=== PATIENT | male | born 1975 | race Caucasian/White ===

== ENCOUNTER 2019-06-26 09:51 | Inpatient (IN) | payer SELFPAY ==
[~2019-06-26] VITALS: Ht 182.9 cm; Wt 76.8 kg
[2019-06-26] MEDS ORDERED: IV NORMAL SALINE 1000ML BAG 1,000 ML IV SCH (10:09)
[2019-06-26] MEDS ORDERED: fentaNYL PF VIAL 100 MCG/2 ML VIAL IV ONE ×2 (10:15→11:45)
[2019-06-26] MEDS ORDERED: ONDANSETRON PF 4 MG/2 ML VIAL. IV ONE (10:15)
[2019-06-26 10:34] LABS: BASO % 1 % (0-3); EOS % 1 % (0-3); HEMATOCRIT 40.7 % (39.0-53.0); HEMOGLOBIN 14.3 g/dL (13.0-17.5); LYMPH # 0.9 x10^3/uL (1.0-4.8); LYMPH % 15 % (24-48); MEAN CORPUSCULAR HEMOGLOBIN 33 pg (25-35); MEAN CORPUSCULAR HGB CONC 35 g/dL (31-37); MEAN CORPUSCULAR VOLUME 92 fL (79-100); MONO # 0.3 x10^3/uL (0.0-1.1); MONO % 5 % (0-9); NEUT # 4.9 x10^3/uL (1.8-7.7); NEUT % 79 % (31-73); PLATELET COUNT 292 x10^3/uL (140-400); RED BLOOD COUNT 4.41 x10^6/uL (4.30-5.70); RED CELL DISTRIBUTION WIDTH 12.4 % (11.5-14.5); WHITE BLOOD COUNT 6.2 x10^3/uL (4.0-11.0)
[2019-06-26 10:50] LABS: CALCIUM 10.3 mg/dL (8.5-10.1); CREATININE 1.1 mg/dL (0.7-1.3); GFR 72.7; POTASSIUM 4.1 mmol/L (3.5-5.1)
[2019-06-26 10:55] LABS: ALBUMIN/GLOBULIN RATIO 1.2 (1.0-1.7); TOTAL BILIRUBIN 0.3 mg/dL (0.2-1.0); TOTAL PROTEIN 7.4 g/dL (6.4-8.2)
--- NOTE | 2019-06-26 11:17 | RAD ---
EXAM: Abdomen and pelvis CT without intravenous contrast. HISTORY: Right lower quadrant pain. TECHNIQUE: Computed tomographic images of the abdomen and pelvis were obtained without contrast. Multiplanar reformatting was performed. *One or more of the following individualized dose reduction techniques were utilized for this examination: 1. Automated exposure control. 2. Adjustment of the mA and/or kV according to patient size. 3. Use of iterative reconstruction technique. COMPARISON: None. FINDINGS: Evaluation of the lower thorax is unremarkable. No hepatic lesion is seen on this noncontrast exam. The gallbladder is surgically absent. There is slight common bile duct dilatation, likely due to reservoir effect status post cystectomy. The pancreas is unremarkable. There is a splenule adjacent to an otherwise unremarkable spleen. The adrenal glands are unremarkable. There is no evidence of nephrolithiasis. There is no evidence of hydronephrosis. There is no appendicitis. There is a suspected tiny lymph node with benign fatty hilum adjacent to the appendix, measuring 8 mm. No abnormally thickened or dilated loop bowel is seen. The bladder is unremarkable. There is no lymphadenopathy. IMPRESSION: No acute abdominal or pelvic finding. Electronically signed by: Christine Salcedo MD (06/26/2019 11:14 AM) [place] [id number]
[2019-06-26 11:20] LABS: BILIRUBIN,URINE NEGATIVE (NEG); CLARITY,URINE CLEAR; COLOR,URINE YELLOW; NITRITE,URINE NEGATIVE (NEG); PH,URINE 7.5; PROTEIN,URINE NEGATIVE (NEG-TRACE); UROBILINOGEN,URINE 0.2 mg/dL (0.2 mg/dL)
[2019-06-26] MEDS ORDERED: KETOROLAC 30 MG/ML VIAL. IV ONE (11:30)
[2019-06-26 11:36] LABS: BACTERIA,URINE 0 /HPF (0-FEW); RBC,URINE OCC /HPF (0-2); SQUAMOUS EPITHELIAL CELL,UR FEW /LPF
[2019-06-26] MEDS ORDERED: METOCLOPRAMIDE HCL 10 MG/2 ML VIAL. IV ONE (12:15)
--- NOTE | 2019-06-26 12:37 | PHYS DOC ---
Past Medical History Past Medical History: Depression Past Surgical History: Cholecystectomy Alcohol Use: Occasionally Drug Use: None Adult General Chief Complaint Chief Complaint: ABDOMINAL PAIN HPI HPI Patient is a 43 year old male who presents with obtaining of right lower quadrant pain as a constant pain since 3 AM and rated his pain 10 over 10. Patient also complaining of nausea and 3 episodes of vomiting. Patient denies urinary symptoms, fever and chills, diarrhea and constipation. Patient states he has had intermittent episodes of nausea and vomiting and abdominal pain this time his pain was worse than his usual. Review of Systems Review of Systems Constitutional: Denies fever or chills [] Eyes: Denies change in visual acuity, redness, or eye pain [] HENT: Denies nasal congestion or sore throat [] Respiratory: Denies cough or shortness of breath [] Cardiovascular: No additional information not addressed in HPI [] GI: Reports abdominal pain, nausea, vomiting, denies bloody stools or diarrhea [] : Denies dysuria or hematuria [] Musculoskeletal: Denies back pain or joint pain [] Integument: Denies rash or skin lesions [] Neurologic: Denies headache, focal weakness or sensory changes [] Endocrine: Denies polyuria or polydipsia [] All other systems were reviewed and found to be within normal limits, except as documented in this note. Current Medications Current Medications Current Medications Medications (Trade) Dose Ordered Sig/Manju Start Time Stop Time Status Last Admin Dose Admin Fentanyl Citrate (Fentanyl 2ml Vial) 50 mcg 1X ONCE 06/26/19 11:45 06/26/19 11:50 DC 06/26/19 12:29 50 MCG Ketorolac Tromethamine (Toradol 30mg Vial) 30 mg 1X ONCE 06/26/19 11:30 06/26/19 11:31 DC Ondansetron HCl (Zofran) 4 mg 1X ONCE 06/26/19 10:15 06/26/19 10:37 DC 06/26/19 10:36 4 MG Sodium Chloride 1,000 ml @ 1,000 mls/hr Q1H 06/26/19 10:09 06/26/19 11:08 DC 06/26/19 10:36 1,000 MLS/HR Allergies Allergies Allergies Coded Allergies Type Severity Reaction Last Updated Verified Tetanus Vaccines and Toxoid Allergy Intermediate 06/26/19 Yes prochlorperazine Allergy Intermediate 06/26/19 Yes Physical Exam Physical Exam Constitutional: Well developed, well nourished, mild distress, non-toxic appearance. [] HENT: Normocephalic, atraumatic. Eyes: PERRLA, EOMI, conjunctiva normal, no discharge. [] Neck: Normal range of motion, no tenderness, supple, no stridor. [] Cardiovascular:Heart rate regular rhythm, no murmur [] Lungs & Thorax: Bilateral breath sounds clear to auscultation [] Abdomen: Bowel sounds normal, soft, lower quadrant guarding, no tenderness, no masses, no pulsatile masses. [] Skin: Warm, dry, no erythema, no rash. [] Back: No tenderness, no CVA tenderness. [] Extremities: No tenderness, no cyanosis, no clubbing, ROM intact, no edema. [] Neurologic: Alert and oriented X 3, no focal deficits noted. [] Psychologic: Affect normal, judgement normal, mood normal. [] Current Patient Data Vital Signs Vital Signs Date Time Temp Pulse Resp B/P (MAP) Pulse Ox O2 Delivery O2 Flow Rate FiO2 06/26/19 10:42 75 16 149/82 (104) 98 Room Air 06/26/19 10:15 97.6 97.6 Lab Values Laboratory Tests Test 06/26/19 10:27 06/26/19 11:05 White Blood Count 6.2 x10^3/uL (4.0-11.0) Red Blood Count 4.41 x10^6/uL (4.30-5.70) Hemoglobin 14.3 g/dL (13.0-17.5) Hematocrit 40.7 % (39.0-53.0) Mean Corpuscular Volume 92 fL (79-100) Mean Corpuscular Hemoglobin 33 pg (25-35) Mean Corpuscular Hemoglobin Concent 35 g/dL (31-37) Red Cell Distribution Width 12.4 % (11.5-14.5) Platelet Count 292 x10^3/uL (140-400) Neutrophils (%) (Auto) 79 % (31-73) H Lymphocytes (%) (Auto) 15 % (24-48) L Monocytes (%) (Auto) 5 % (0-9) Eosinophils (%) (Auto) 1 % (0-3) Basophils (%) (Auto) 1 % (0-3) Neutrophils # (Auto) 4.9 x10^3/uL (1.8-7.7) Lymphocytes # (Auto) 0.9 x10^3/uL (1.0-4.8) L Monocytes # (Auto) 0.3 x10^3/uL (0.0-1.1) Eosinophils # (Auto) 0.0 x10^3/uL (0.0-0.7) Basophils # (Auto) 0.0 x10^3/uL (0.0-0.2) Sodium Level 139 mmol/L (136-145) Potassium Level 4.1 mmol/L (3.5-5.1) Chloride Level 104 mmol/L (98-107) Carbon Dioxide Level 25 mmol/L (21-32) Anion Gap 10 (6-14) Blood Urea Nitrogen 12 mg/dL (8-26) Creatinine 1.1 mg/dL (0.7-1.3) Estimated GFR (Cockcroft-Gault) 72.7 BUN/Creatinine Ratio 11 (6-20) Glucose Level 110 mg/dL (70-99) H Calcium Level 10.3 mg/dL (8.5-10.1) H Total Bilirubin 0.3 mg/dL (0.2-1.0) Aspartate Amino Transferase (AST) 22 U/L (15-37) Alanine Aminotransferase (ALT) 45 U/L (16-63) Alkaline Phosphatase 78 U/L (46-116) Total Protein 7.4 g/dL (6.4-8.2) Albumin 4.0 g/dL (3.4-5.0) Albumin/Globulin Ratio 1.2 (1.0-1.7) Lipase 107 U/L (73-393) Urine Collection Type Void Urine Color Yellow Urine Clarity Clear Urine pH 7.5 Urine Specific [place] 1.015 Urine Protein Negative mg/dL (NEG-TRACE) Urine Glucose (UA) Negative mg/dL (NEG) Urine Ketones (Stick) Negative mg/dL (NEG) Urine Blood Negative (NEG) Urine Nitrite Negative (NEG) Urine Bilirubin Negative (NEG) Urine Urobilinogen Dipstick 0.2 mg/dL (0.2 mg/dL) Urine Leukocyte Esterase Negative (NEG) Urine RBC Occ /HPF (0-2) Urine WBC 1-4 /HPF (0-4) Urine Squamous Epithelial Cells Few /LPF Urine Bacteria 0 /HPF (0-FEW) Laboratory Tests 06/26/19 10:27 Laboratory Tests 06/26/19 10:27 EKG EKG [] Radiology/Procedures Radiology/Procedures [][facility] [address] [place] [address] IMAGING REPORT Signed PATIENT: SARA ALVAREZ ACCOUNT: [id number] : 1975 LOCATION: ER AGE: 43 SEX: M EXAM STATUS: REG ER ORD. PHYSICIAN: CHAVA RUIZ MD REASON: right lower quadrant pain 1 DAY PROCEDURE: CT ABDOMEN PELVIS WO CONTRAST EXAM: Abdomen and pelvis CT without intravenous contrast. HISTORY: Right lower quadrant pain. TECHNIQUE: Computed tomographic images of the abdomen and pelvis were obtained without contrast. Multiplanar reformatting was performed. *One or more of the following individualized dose reduction techniques were utilized for this examination: 1. Automated exposure control. 2. Adjustment of the mA and/or kV according to patient size. 3. Use of iterative reconstruction technique. COMPARISON: None. FINDINGS: Evaluation of the lower thorax is unremarkable. No hepatic lesion is seen on this noncontrast exam. The gallbladder is surgically absent. There is slight common bile duct dilatation, likely due to reservoir effect status post cystectomy. The pancreas is unremarkable. There is a splenule adjacent to an otherwise unremarkable spleen. The adrenal glands are unremarkable. There is no evidence of nephrolithiasis. There is no evidence of hydronephrosis. There is no appendicitis. There is a suspected tiny lymph node with benign fatty hilum adjacent to the appendix, measuring 8 mm. No abnormally thickened or dilated loop bowel is seen. The bladder is unremarkable. There is no lymphadenopathy. IMPRESSION: No acute abdominal or pelvic finding. Electronically signed by: Christine Khan MD (06/26/2019 11:14 AM) [facility] DICTATED and SIGNED BY: CHRISTINE KHAN MD DATE: 06/26/19 1116 Course & Med Decision Making Course & Med Decision Making Pertinent Labs and Imaging studies reviewed. (See chart for details) Evaluation of patient in ER showed 43-year-old male patient with complaining of abdominal pain and nausea and vomiting. Patient is IV fluid and pain medication and nausea medication with partial improvement of his condition. Labs and CT of abdomen and pelvis was unremarkable. Patient had a history of the same problem previously. Patient requiring admission for further evaluation and treatment. Discussed with Dr. Hdz who is in agreement with admission. Discussed findings and plan with patient and family, who acknowledge understanding and agreement. Dragon Disclaimer Dragon Disclaimer This electronic medical record was generated, in whole or in part, using a voice recognition dictation system. Departure Departure Impression: Primary Impression: Abdominal pain Additional Impressions: Nausea and vomiting Hypercalcemia Disposition: ADMITTED INPATIENT (@1204) Admitting Physician: BARBARA (Dr. Hdz accepted admission at 1201) Condition: IMPROVED Referrals: UNKNOWN PCP NAME (PCP) Problem Qualifiers Primary Impression: Abdominal pain Abdominal location: right lower quadrant Qualified Codes: R10.31 - Right lower quadrant pain Additional Impressions: Nausea and vomiting Vomiting type: cyclical vomiting Vomiting Intractability: intractable Qualified Codes: G43.A1 - Cyclical vomiting, intractable CHAVA RUIZ MD Jun 26, 2019 12:37
[2019-06-26] MEDS ORDERED: ONDANSETRON PF 4 MG/2 ML VIAL. IV PRN ×2 (12:45→14:15)
[2019-06-26 12:50] VITALS: BP 121/87
[2019-06-26] MEDS: IV NORMAL SALINE 1000ML BAG 1,000 ML IV SCH ×2 (12:52→19:17)
[2019-06-26] MEDS ORDERED: LAMO150T3 PO (14:02)
[2019-06-26] MEDS ORDERED: CLON2TAB PO (14:02)
[2019-06-26] MEDS ORDERED: QUET300T5 PO (14:02)
--- NOTE | 2019-06-26 14:57 | PDOC2 ---
GI CONSULT Reason For Consult: Abd pain, nausea HPI: HPI: 43 y/o male admitted through ER. Awoke suddenly at 3:00 a.m. w/ stabbing right- sided abd pain associated w/ vomiting (bilious). Typically has no issues w/ abd pain or vomiting but did have similar symptoms around age 34. At that time, had EGD and colonoscopy in [place], [place] which were both reportedly normal and he might have been diagnosed w/ IBS. Ultimately had cholecystectomy - does not recall stones. No issues since. Has occasional dyspepsia (burning in upper chest), takes Tums ~twice monthly. No dysphagia. No hematemesis. No diarrhea, constipation, hematochezia, or melena. No change in appetite or weight loss. No liver, pancreas, or PUD history. Takes ibuprofen a couple times weekly for knee pain. No new medications, sick contacts, recent travel, or consumption of questionable food. 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 WBC, Hgb, LFTs, and lipase are normal. Ca++ was 10.3 and PTH is pending. CT was w/o acute issue - noted slight CBD dilatation likely due to reservoir effect s/p cholecystectomy and suspected tiny lymph node with benign fatty hilum adjacent to appendix. PMH: PMH: IBS, bipolar cholecystectomy, left ACL repair x 2, right ACL repair FH: Family History: Cancer (mother - lung and breast), Other (mother - GI problems/food allergies) Social History: Smoke: No ALCOHOL: rare Drugs: None ROS: GEN: Denies fevers, chills, sweats HEENT: Denies blurred vision, sore throat CV: Denies chest pain RESP: Denies shortness of air, cough GI: Per HPI : Denies hematuria, dysuria ENDO: Denies weight changes NEURO: Denies confusion, dizziness MSK: occasional joint pain SKIN: Denies jaundice, pruritus Vitals: Vitals: Vital Signs Date Time Temp Pulse Resp B/P (MAP) Pulse Ox O2 Delivery O2 Flow Rate FiO2 06/26/19 12:50 98.3 76 14 121/87 (98) 98 Room Air 98.3 Labs: Labs: Laboratory Tests Test 06/26/19 10:27 06/26/19 11:05 White Blood Count 6.2 x10^3/uL (4.0-11.0) Red Blood Count 4.41 x10^6/uL (4.30-5.70) Hemoglobin 14.3 g/dL (13.0-17.5) Hematocrit 40.7 % (39.0-53.0) Mean Corpuscular Volume 92 fL (79-100) Mean Corpuscular Hemoglobin 33 pg (25-35) Mean Corpuscular Hemoglobin Concent 35 g/dL (31-37) Red Cell Distribution Width 12.4 % (11.5-14.5) Platelet Count 292 x10^3/uL (140-400) Neutrophils (%) (Auto) 79 % (31-73) Lymphocytes (%) (Auto) 15 % (24-48) Monocytes (%) (Auto) 5 % (0-9) Eosinophils (%) (Auto) 1 % (0-3) Basophils (%) (Auto) 1 % (0-3) Neutrophils # (Auto) 4.9 x10^3/uL (1.8-7.7) Lymphocytes # (Auto) 0.9 x10^3/uL (1.0-4.8) Monocytes # (Auto) 0.3 x10^3/uL (0.0-1.1) Eosinophils # (Auto) 0.0 x10^3/uL (0.0-0.7) Basophils # (Auto) 0.0 x10^3/uL (0.0-0.2) Sodium Level 139 mmol/L (136-145) Potassium Level 4.1 mmol/L (3.5-5.1) Chloride Level 104 mmol/L (98-107) Carbon Dioxide Level 25 mmol/L (21-32) Anion Gap 10 (6-14) Blood Urea Nitrogen 12 mg/dL (8-26) Creatinine 1.1 mg/dL (0.7-1.3) Estimated GFR (Cockcroft-Gault) 72.7 BUN/Creatinine Ratio 11 (6-20) Glucose Level 110 mg/dL (70-99) Calcium Level 10.3 mg/dL (8.5-10.1) Total Bilirubin 0.3 mg/dL (0.2-1.0) Aspartate Amino Transf (AST/SGOT) 22 U/L (15-37) Alanine Aminotransferase (ALT/SGPT) 45 U/L (16-63) Alkaline Phosphatase 78 U/L (46-116) Total Protein 7.4 g/dL (6.4-8.2) Albumin 4.0 g/dL (3.4-5.0) Albumin/Globulin Ratio 1.2 (1.0-1.7) Lipase 107 U/L (73-393) Urine Collection Type Void Urine Color Yellow Urine Clarity Clear Urine pH 7.5 Urine Specific [place] 1.015 Urine Protein Negative mg/dL (NEG-TRACE) Urine Glucose (UA) Negative mg/dL (NEG) Urine Ketones (Stick) Negative mg/dL (NEG) Urine Blood Negative (NEG) Urine Nitrite Negative (NEG) Urine Bilirubin Negative (NEG) Urine Urobilinogen Dipstick 0.2 mg/dL (0.2 mg/dL) Urine Leukocyte Esterase Negative (NEG) Urine RBC Occ /HPF (0-2) Urine WBC 1-4 /HPF (0-4) Urine Squamous Epithelial Cells Few /LPF Urine Bacteria 0 /HPF (0-FEW) Allergies: Coded Allergies: Tetanus Vaccines and Toxoid (Verified Allergy, Intermediate, 06/26/19) prochlorperazine (Verified Allergy, Intermediate, 06/26/19) involuntary muscle movement. Medications: Current Medications Medications (Trade) Dose Ordered Sig/Manju Route PRN Reason Start Time Stop Time Status Last Admin Dose Admin Sodium Chloride 1,000 ml @ 1,000 mls/hr Q1H IV 06/26/19 10:09 06/26/19 11:08 DC 06/26/19 10:36 Ondansetron HCl (Zofran) 4 mg 1X ONCE IV 06/26/19 10:15 06/26/19 10:37 DC 06/26/19 10:36 Fentanyl Citrate (Fentanyl 2ml Vial) 50 mcg 1X ONCE IV 06/26/19 10:15 06/26/19 10:36 DC 06/26/19 10:37 Fentanyl Citrate (Fentanyl 2ml Vial) 50 mcg 1X ONCE IV 06/26/19 11:45 06/26/19 11:50 DC 06/26/19 12:29 Metoclopramide HCl (Reglan Vial) 10 mg 1X ONCE IV 06/26/19 12:15 06/26/19 12:16 DC 06/26/19 12:29 Sodium Chloride 1,000 ml @ 150 mls/hr Q6H40M IV 06/26/19 12:37 06/27/19 12:36 06/26/19 12:52 Imaging: Imaging: CT A/P w/o contrast FINDINGS: Evaluation of the lower thorax is unremarkable. No hepatic lesion is seen on this noncontrast exam. The gallbladder is surgically absent. There is slight common bile duct dilatation, likely due to reservoir effect status post cystectomy. The pancreas is unremarkable. There is a splenule adjacent to an otherwise unremarkable spleen. The adrenal glands are unremarkable. There is no evidence of nephrolithiasis. There is no evidence of hydronephrosis. There is no appendicitis. There is a suspected tiny lymph node with benign fatty hilum adjacent to the appendix, measuring 8 mm. No abnormally thickened or dilated loop bowel is seen. The bladder is unremarkable. There is no lymphadenopathy. IMPRESSION: No acute abdominal or pelvic finding. PE: GEN: NAD HEENT: Atraumatic, PERRL LUNGS: CTAB HEART: RRR ABD: NABS, S/ND, tenderness to right side below ribs to RLQ above hip - less so toward epigastric area EXTREMITY: No edema SKIN: No rashes, no jaundice NEURO/PSYCH: A & O �3 A/P: A/P: Right-sided abd pain, vomiting Occasional heartburn, ?h/o IBS CRC screen - reports normal colonoscopy ~9 years ago S/p cholecystectomy Hypercalcemia NSAID use Bipolar - per primary -- Acute onset of symptoms overnight w/o precipitating events. I offered clear liquids - he'd like to try ice chips for now. IV acid-substance abuse rn, anti-emetics. Pain control, IVF, and psych meds per primary. Additional GI recs per Dr. Pereyra. OLGA URIOSTEGUI Jun 26, 2019 14:57
[2019-06-26 15:00] VITALS: BP 125/88
--- NOTE | 2019-06-26 15:10 | HP ---
ADMIT DATE: 06/26/2019 CHIEF COMPLAINT: Abdominal pain and nausea. HISTORY OF PRESENT ILLNESS: The patient is a pleasant, healthy middle-aged male who presents with nausea, vomiting, and abdominal pain. It is in the right lower quadrant, rated 7/10. He has associated weakness, has been occurring for about 12 hours. I discussed the case with ER physician. We are going to admit the patient and consult GI. PAST MEDICAL HISTORY: Cholecystectomy and knee surgery. ALLERGIES: TETANUS AND COMPAZINE. FAMILY HISTORY: Hypertension. SOCIAL HISTORY: He does not drink, smoke or take drugs. 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 MEDICATIONS: Reviewed, please refer to the MRAD. REVIEW OF SYSTEMS: GENERAL: No history of weight change, weakness or fevers. SKIN: No bruising, hair changes or rashes. EYES: No blurred, double or loss of vision. NOSE AND THROAT: No history of nosebleeds, hoarseness or sore throat. HEART: No history of palpitations, chest pain or shortness of breath on exertion. LUNGS: Denies cough, hemoptysis, wheezing or shortness of breath. GASTROINTESTINAL: He complains of abdominal pain in the right lower quadrant. GENITOURINARY: No history of frequency, urgency, hesitancy or nocturia. NEUROLOGIC: Denies history of numbness, tingling, tremor or weakness. PSYCHIATRIC: No history of panic, anxiety or depression. ENDOCRINE: No history of heat or cold intolerance, polyuria or polydipsia. EXTREMITIES: Denies muscle weakness, joint pain, pain on walking or stiffness. PHYSICAL EXAMINATION: VITALS: Within normal limits and are stable. GENERAL: No apparent distress. Alert and oriented. HEENT: Head is normocephalic, atraumatic, pupils were equally round and reactive to light and accommodation. NECK: Supple, no JVD, no thyromegaly was noted. LUNGS: Clear to auscultation in all lung sweet without rhonchi or wheezing. HEART: RRR, S1, S2 present. Peripheral pulses intact, no obvious murmurs were noted. ABDOMEN: Soft, nontender. Positive bowel sounds no organomegaly, normal bowel sounds. EXTREMITIES: Without any cyanosis, clubbing, or edema. Pedal pulses intact, Homans sign is negative. NEUROLOGIC: Normal speech, normal tone. A & O x3, moves all extremities, no obvious focal deficits. PSYCHIATRIC: Normal affect, normal mood. Stable. SKIN: No ulcerations or rashes, good skin turgor, no jaundice. VASCULAR: Good capillary refill, neurovascular bundle appears to be intact. LABORATORY DATA: White count 6, hemoglobin 14, platelets 292. Urinalysis normal. Electrolytes: They are normal except for a glucose of 110 and a calcium of 10.3. CT of the abdomen negative. ASSESSMENT AND PLAN: Nausea, vomiting, abdominal pain, and incidental finding of a mild hypercalcemia. The patient is being admitted. We will give IV fluids, check a PTH level, p.r.n. Zofran, deep vein thrombosis prophylaxis, home medications. IVY ALVAREZ DO DR: JIL/max JOB#: [id number] / [id number]
[2019-06-26] MEDS: PANTOPRAZOLE IV PUSH 40 MG VIAL. IVP SCH (15:52)
[2019-06-26] MEDS: HYDROcodone/APAP 5/325MG 1 TAB TABLET PO PRN ×2 (16:01→20:53)
[2019-06-26] MEDS: clonazePAM 1 MG TABLET PO SCH ×2 (17:17→20:48)
[2019-06-26 17:31] LABS: BARBITURATES NEG (NEG); BENZODIAZEPINES NEG (NEG); CANNABINOIDS NEG (NEG); COCAINE NEG (NEG); METHADONE NEG (NEG); OPIATES NEG (NEG); PHENCYCLIDINE NEG (NEG)
[2019-06-26 17:34] LABS: AMPHETAMINE/METHAMPHETAMINE NEG (NEG)
[2019-06-26 19:00] VITALS: BP 116/81
[2019-06-26] MEDS: AMINO AC 3%/ELECTROLYTE/GLYCER 1,000 ML IV SCH (19:56)
[2019-06-26] MEDS: QUEtiapine 100 MG TABLET. PO SCH (20:47)
--- NOTE | 2019-06-26 20:56 | NUR ---
Non-Administered NS at 191 due to pt having procalamine running at 75 mL/hr.
[2019-06-26 23:00] VITALS: BP 101/67
[2019-06-27] MEDS: IV NORMAL SALINE 1000ML BAG 1,000 ML IV SCH ×2 (01:55→08:37)
--- NOTE | 2019-06-27 01:55 | NUR ---
Non-Admin NS at 0157 due to pt having Procalamine running.
[2019-06-27 02:12] LABS: CALCIUM PTH 10.1 mg/dL (8.7-10.2); CREATININE PTH 0.88 mg/dL (0.76-1.27); PHOSPHORUS PTH 2.2 mg/dL (2.5-4.5); PTH INTACT 23 pg/mL (15-65)
[2019-06-27 03:00] VITALS: BP 100/68
[2019-06-27] MEDS: HYDROcodone/APAP 5/325MG 1 TAB TABLET PO PRN ×5 (03:11→21:25)
[2019-06-27] MEDS: AMINO AC 3%/ELECTROLYTE/GLYCER 1,000 ML IV SCH ×2 (04:20→17:19)
[2019-06-27 04:27] LABS: HEMATOCRIT 38.2 % (39.0-53.0); HEMOGLOBIN 13.2 g/dL (13.0-17.5); RED BLOOD COUNT 4.1 x10^6/uL (4.30-5.70); RED CELL DISTRIBUTION WIDTH 12.6 % (11.5-14.5)
[2019-06-27 04:59] LABS: ALBUMIN/GLOBULIN RATIO 0.9 (1.0-1.7); CALCIUM 9.4 mg/dL (8.5-10.1); CREATININE 0.9 mg/dL (0.7-1.3); GFR 91.7; POTASSIUM 3.6 mmol/L (3.5-5.1); TOTAL BILIRUBIN 0.5 mg/dL (0.2-1.0); TOTAL PROTEIN 6.4 g/dL (6.4-8.2)
[2019-06-27 07:05] VITALS: BP 110/77
[2019-06-27] MEDS ORDERED: BARIUM SULFATE 60% 355 ML SUSP PO ONE (07:15)
[2019-06-27] MEDS: clonazePAM 1 MG TABLET PO SCH ×4 (10:06→21:25)
[2019-06-27] MEDS: PANTOPRAZOLE IV PUSH 40 MG VIAL. IVP SCH (10:06)
--- NOTE | 2019-06-27 10:06 | RAD ---
Indication: Abdominal pain. Nausea and vomiting. TECHNIQUE: Small bowel follow-through exam with thin barium and 1.6 minutes of fluoroscopy time and 8 images. COMPARISON: None FINDINGS: Prompt opacification is seen of the stomach. Appropriate antegrade movement of contrast is seen in the small bowel. Contrast is seen in the colon at 1 hour. The small bowel fold pattern is within normal limits. Terminal ileum is within normal limits. IMPRESSION: No fluoroscopic abnormalities in the small bowel. Electronically signed by: Omari Vo DO (06/27/2019 10:03 AM) [facility]
[2019-06-27] MEDS: lamoTRIgine 100 MG TABLET. PO SCH (10:09)
--- NOTE | 2019-06-27 10:51 | NUR ---
SW following pt for dc planning. Chart reviewed and discussed with RN. Pt lives at home alone and is self pay. HCFS will follow to verify self pay status. SW will continue to follow pending dc needs.
--- NOTE | 2019-06-27 10:58 | PDOC ---
Subjective: Subjective: Nausea has improved, would like to try clear liquids. Right-sided pain is less sharp. Objective: Vital Signs: Vital Signs Date Time Temp Pulse Resp B/P (MAP) Pulse Ox O2 Delivery O2 Flow Rate FiO2 06/27/19 10:09 18 Room Air 06/27/19 07:05 98.1 77 110/77 (88) 97 98.1 Labs: Laboratory Tests Test 06/26/19 11:05 06/26/19 14:40 06/26/19 16:55 06/27/19 03:30 Urine Collection Type Void Urine Color Yellow Urine Clarity Clear Urine pH 7.5 Urine Specific [place] 1.015 Urine Protein Negative mg/dL Urine Glucose (UA) Negative mg/dL Urine Ketones (Stick) Negative mg/dL Urine Blood Negative Urine Nitrite Negative Urine Bilirubin Negative Urine Urobilinogen Dipstick 0.2 mg/dL Urine Leukocyte Esterase Negative Urine RBC Occ /HPF Urine WBC 1-4 /HPF Urine Squamous Epithelial Cells Few /LPF Urine Bacteria 0 /HPF Estimated GFR (Non- 104 EGFR 121 PTH (Intact) Specimen Description Comment Parathyroid Hormone (Intact) 23 pg/mL Calcium (PTH Intact) 10.1 mg/dL Creatinine (PTH Intact) 0.88 mg/dL Phosphorus (PTH Intact) 2.2 mg/dL Urine Opiates Screen Neg Urine Methadone Screen Neg Urine Barbiturates Neg Urine Phencyclidine Screen Neg Urine Amphetamine/Methamphetamine Neg Urine Benzodiazepines Screen Neg Urine Cocaine Screen Neg Urine Cannabinoids Screen Neg Urine Ethyl Alcohol Neg White Blood Count 5.0 x10^3/uL Red Blood Count 4.10 x10^6/uL Hemoglobin 13.2 g/dL Hematocrit 38.2 % Mean Corpuscular Volume 93 fL Mean Corpuscular Hemoglobin 32 pg Mean Corpuscular Hemoglobin Concent 35 g/dL Red Cell Distribution Width 12.6 % Platelet Count 251 x10^3/uL Sodium Level 140 mmol/L Potassium Level 3.6 mmol/L Chloride Level 105 mmol/L Carbon Dioxide Level 27 mmol/L Anion Gap 8 Blood Urea Nitrogen 12 mg/dL Creatinine 0.9 mg/dL Estimated GFR (Cockcroft-Gault) 91.7 BUN/Creatinine Ratio 13 Glucose Level 98 mg/dL Calcium Level 9.4 mg/dL Total Bilirubin 0.5 mg/dL Aspartate Amino Transf (AST/SGOT) 21 U/L Alanine Aminotransferase (ALT/SGPT) 36 U/L Alkaline Phosphatase 62 U/L Total Protein 6.4 g/dL Albumin 3.0 g/dL Albumin/Globulin Ratio 0.9 Imaging: SBS 06/27 IMPRESSION: No fluoroscopic abnormalities in the small bowel. PE: GEN: NAD LUNGS: CTAB HEART: RRR ABD: hyperactive bowel sounds, soft, less tender to right NEURO/PSYCH: A & O �3 A/P: Right-sided abd pain, n/v - improved -- SBS unrevealing and symptoms improved. Try clears and ADAT, change to PO PPI. Reviewed w/ Dr. Pereyra - proceed w/ Meckel's scan tomorrow. OLGA URIOSTEGUI Jun 27, 2019 10:58
[2019-06-27 11:00] VITALS: BP 101/75
--- NOTE | 2019-06-27 11:21 | PDOC ---
PROGRESS NOTES History of Present Illness History of Present Illness ASSESSMENT AND PLAN: Nausea, vomiting, INTRACTABLE abdominal pain, mild hypercalcemia. admitted. IV fluids, PTH level, p.r.n. Zofran, deep vein thrombosis prophylaxis, home medications. Meckel's scan 06/27 PPN AM LABS 27 MIN PT EXAM, CHART REVIEW, > 50% OF TIME SPENT WITH EXAM, CHART REVIEW, PT CARE COORDINATION Vitals Vitals Vital Signs Date Time Temp Pulse Resp B/P (MAP) Pulse Ox O2 Delivery O2 Flow Rate FiO2 06/27/19 10:09 18 Room Air 06/27/19 07:05 98.1 77 110/77 (88) 97 98.1 Physical Exam Physical Exam reactive to light and accommodation. NECK: Supple, no JVD, no thyromegaly was noted. LUNGS: Clear to auscultation in all lung sweet without rhonchi or wheezing. HEART: RRR, S1, S2 present. Peripheral pulses intact, no obvious murmurs were noted. ABDOMEN: Soft, nontender. Positive bowel sounds no organomegaly, normal bowel sounds. EXTREMITIES: Without any cyanosis, clubbing, or edema. Pedal pulses intact, Homans sign is negative. NEUROLOGIC: Normal speech, normal tone. A & O x3, moves all extremities, no obvious focal deficits. PSYCHIATRIC: Normal affect, normal mood. Stable. SKIN: No ulcerations or rashes, good skin turgor, no jaundice. VASCULAR: Good capillary refill, neurovascular bundle appears to be intact. General: Alert, Oriented X3, Cooperative Lungs: Clear Abdomen: Normal bowel sounds, Soft Labs LABS SEX: M EXAM STATUS: ADM IN ORD. PHYSICIAN: OLGA URIOSTEGUI REASON: abd pain, n/v, flouro time 1.6,8 flouro images sent PROCEDURE: SMALL BOWEL SERIES Indication: Abdominal pain. Nausea and vomiting. TECHNIQUE: Small bowel follow-through exam with thin barium and 1.6 minutes of fluoroscopy time and 8 images. COMPARISON: None FINDINGS: Prompt opacification is seen of the stomach. Appropriate antegrade movement of contrast is seen in the small bowel. Contrast is seen in the colon at 1 hour. The small bowel fold pattern is within normal limits. Terminal ileum is within normal limits. IMPRESSION: No fluoroscopic abnormalities in the small bowel. Electronically signed by: Omari Vo DO (06/27/2019 10:03 AM) [facility] Laboratory Tests Test 06/26/19 14:40 06/26/19 16:55 06/27/19 03:30 Estimated GFR (Non- 104 (>59) EGFR 121 (>59) PTH (Intact) Specimen Description Comment (.) Parathyroid Hormone (Intact) 23 pg/mL (15-65) Calcium (PTH Intact) 10.1 mg/dL (8.7-10.2) Creatinine (PTH Intact) 0.88 mg/dL (0.76-1.27) Phosphorus (PTH Intact) 2.2 mg/dL (2.5-4.5) Urine Opiates Screen Neg (NEG) Urine Methadone Screen Neg (NEG) Urine Barbiturates Neg (NEG) Urine Phencyclidine Screen Neg (NEG) Urine Amphetamine/Methamphetamine Neg (NEG) Urine Benzodiazepines Screen Neg (NEG) Urine Cocaine Screen Neg (NEG) Urine Cannabinoids Screen Neg (NEG) Urine Ethyl Alcohol Neg (NEG) White Blood Count 5.0 x10^3/uL (4.0-11.0) Red Blood Count 4.10 x10^6/uL (4.30-5.70) Hemoglobin 13.2 g/dL (13.0-17.5) Hematocrit 38.2 % (39.0-53.0) Mean Corpuscular Volume 93 fL (79-100) Mean Corpuscular Hemoglobin 32 pg (25-35) Mean Corpuscular Hemoglobin Concent 35 g/dL (31-37) Red Cell Distribution Width 12.6 % (11.5-14.5) Platelet Count 251 x10^3/uL (140-400) Sodium Level 140 mmol/L (136-145) Potassium Level 3.6 mmol/L (3.5-5.1) Chloride Level 105 mmol/L (98-107) Carbon Dioxide Level 27 mmol/L (21-32) Anion Gap 8 (6-14) Blood Urea Nitrogen 12 mg/dL (8-26) Creatinine 0.9 mg/dL (0.7-1.3) Estimated GFR (Cockcroft-Gault) 91.7 BUN/Creatinine Ratio 13 (6-20) Glucose Level 98 mg/dL (70-99) Calcium Level 9.4 mg/dL (8.5-10.1) Total Bilirubin 0.5 mg/dL (0.2-1.0) Aspartate Amino Transf (AST/SGOT) 21 U/L (15-37) Alanine Aminotransferase (ALT/SGPT) 36 U/L (16-63) Alkaline Phosphatase 62 U/L (46-116) Total Protein 6.4 g/dL (6.4-8.2) Albumin 3.0 g/dL (3.4-5.0) Albumin/Globulin Ratio 0.9 (1.0-1.7) Assessment and Plan Assessmemt and Plan Problems Medical Problems: (1) Abdominal pain Status: Acute (2) Hypercalcemia Status: Acute (3) Nausea and vomiting Status: Acute Comment Review of Relevant I have reviewed the following items rio (where applicable) has been applied. Labs Laboratory Tests Test 06/26/19 10:27 06/26/19 11:05 06/26/19 14:40 06/26/19 16:55 White Blood Count 6.2 x10^3/uL (4.0-11.0) Red Blood Count 4.41 x10^6/uL (4.30-5.70) Hemoglobin 14.3 g/dL (13.0-17.5) Hematocrit 40.7 % (39.0-53.0) Mean Corpuscular Volume 92 fL (79-100) Mean Corpuscular Hemoglobin 33 pg (25-35) Mean Corpuscular Hemoglobin Concent 35 g/dL (31-37) Red Cell Distribution Width 12.4 % (11.5-14.5) Platelet Count 292 x10^3/uL (140-400) Neutrophils (%) (Auto) 79 % (31-73) Lymphocytes (%) (Auto) 15 % (24-48) Monocytes (%) (Auto) 5 % (0-9) Eosinophils (%) (Auto) 1 % (0-3) Basophils (%) (Auto) 1 % (0-3) Neutrophils # (Auto) 4.9 x10^3/uL (1.8-7.7) Lymphocytes # (Auto) 0.9 x10^3/uL (1.0-4.8) Monocytes # (Auto) 0.3 x10^3/uL (0.0-1.1) Eosinophils # (Auto) 0.0 x10^3/uL (0.0-0.7) Basophils # (Auto) 0.0 x10^3/uL (0.0-0.2) Sodium Level 139 mmol/L (136-145) Potassium Level 4.1 mmol/L (3.5-5.1) Chloride Level 104 mmol/L (98-107) Carbon Dioxide Level 25 mmol/L (21-32) Anion Gap 10 (6-14) Blood Urea Nitrogen 12 mg/dL (8-26) Creatinine 1.1 mg/dL (0.7-1.3) Estimated GFR (Cockcroft-Gault) 72.7 BUN/Creatinine Ratio 11 (6-20) Glucose Level 110 mg/dL (70-99) Calcium Level 10.3 mg/dL (8.5-10.1) Total Bilirubin 0.3 mg/dL (0.2-1.0) Aspartate Amino Transf (AST/SGOT) 22 U/L (15-37) Alanine Aminotransferase (ALT/SGPT) 45 U/L (16-63) Alkaline Phosphatase 78 U/L (46-116) Total Protein 7.4 g/dL (6.4-8.2) Albumin 4.0 g/dL (3.4-5.0) Albumin/Globulin Ratio 1.2 (1.0-1.7) Lipase 107 U/L (73-393) Urine Collection Type Void Urine Color Yellow Urine Clarity Clear Urine pH 7.5 Urine Specific Lebeau 1.015 Urine Protein Negative mg/dL (NEG-TRACE) Urine Glucose (UA) Negative mg/dL (NEG) Urine Ketones (Stick) Negative mg/dL (NEG) Urine Blood Negative (NEG) Urine Nitrite Negative (NEG) Urine Bilirubin Negative (NEG) Urine Urobilinogen Dipstick 0.2 mg/dL (0.2 mg/dL) Urine Leukocyte Esterase Negative (NEG) Urine RBC Occ /HPF (0-2) Urine WBC 1-4 /HPF (0-4) Urine Squamous Epithelial Cells Few /LPF Urine Bacteria 0 /HPF (0-FEW) Estimated GFR (Non- 104 (>59) EGFR 121 (>59) PTH (Intact) Specimen Description Comment (.) Parathyroid Hormone (Intact) 23 pg/mL (15-65) Calcium (PTH Intact) 10.1 mg/dL (8.7-10.2) Creatinine (PTH Intact) 0.88 mg/dL (0.76-1.27) Phosphorus (PTH Intact) 2.2 mg/dL (2.5-4.5) Urine Opiates Screen Neg (NEG) Urine Methadone Screen Neg (NEG) Urine Barbiturates Neg (NEG) Urine Phencyclidine Screen Neg (NEG) Urine Amphetamine/Methamphetamine Neg (NEG) Urine Benzodiazepines Screen Neg (NEG) Urine Cocaine Screen Neg (NEG) Urine Cannabinoids Screen Neg (NEG) Urine Ethyl Alcohol Neg (NEG) Test 06/27/19 03:30 White Blood Count 5.0 x10^3/uL (4.0-11.0) Red Blood Count 4.10 x10^6/uL (4.30-5.70) Hemoglobin 13.2 g/dL (13.0-17.5) Hematocrit 38.2 % (39.0-53.0) Mean Corpuscular Volume 93 fL (79-100) Mean Corpuscular Hemoglobin 32 pg (25-35) Mean Corpuscular Hemoglobin Concent 35 g/dL (31-37) Red Cell Distribution Width 12.6 % (11.5-14.5) Platelet Count 251 x10^3/uL (140-400) Sodium Level 140 mmol/L (136-145) Potassium Level 3.6 mmol/L (3.5-5.1) Chloride Level 105 mmol/L (98-107) Carbon Dioxide Level 27 mmol/L (21-32) Anion Gap 8 (6-14) Blood Urea Nitrogen 12 mg/dL (8-26) Creatinine 0.9 mg/dL (0.7-1.3) Estimated GFR (Cockcroft-Gault) 91.7 BUN/Creatinine Ratio 13 (6-20) Glucose Level 98 mg/dL (70-99) Calcium Level 9.4 mg/dL (8.5-10.1) Total Bilirubin 0.5 mg/dL (0.2-1.0) Aspartate Amino Transf (AST/SGOT) 21 U/L (15-37) Alanine Aminotransferase (ALT/SGPT) 36 U/L (16-63) Alkaline Phosphatase 62 U/L (46-116) Total Protein 6.4 g/dL (6.4-8.2) Albumin 3.0 g/dL (3.4-5.0) Albumin/Globulin Ratio 0.9 (1.0-1.7) Laboratory Tests Test 06/26/19 14:40 06/26/19 16:55 06/27/19 03:30 Estimated GFR (Non- 104 (>59) EGFR 121 (>59) PTH (Intact) Specimen Description Comment (.) Parathyroid Hormone (Intact) 23 pg/mL (15-65) Calcium (PTH Intact) 10.1 mg/dL (8.7-10.2) Creatinine (PTH Intact) 0.88 mg/dL (0.76-1.27) Phosphorus (PTH Intact) 2.2 mg/dL (2.5-4.5) Urine Opiates Screen Neg (NEG) Urine Methadone Screen Neg (NEG) Urine Barbiturates Neg (NEG) Urine Phencyclidine Screen Neg (NEG) Urine Amphetamine/Methamphetamine Neg (NEG) Urine Benzodiazepines Screen Neg (NEG) Urine Cocaine Screen Neg (NEG) Urine Cannabinoids Screen Neg (NEG) Urine Ethyl Alcohol Neg (NEG) White Blood Count 5.0 x10^3/uL (4.0-11.0) Red Blood Count 4.10 x10^6/uL (4.30-5.70) Hemoglobin 13.2 g/dL (13.0-17.5) Hematocrit 38.2 % (39.0-53.0) Mean Corpuscular Volume 93 fL (79-100) Mean Corpuscular Hemoglobin 32 pg (25-35) Mean Corpuscular Hemoglobin Concent 35 g/dL (31-37) Red Cell Distribution Width 12.6 % (11.5-14.5) Platelet Count 251 x10^3/uL (140-400) Sodium Level 140 mmol/L (136-145) Potassium Level 3.6 mmol/L (3.5-5.1) Chloride Level 105 mmol/L (98-107) Carbon Dioxide Level 27 mmol/L (21-32) Anion Gap 8 (6-14) Blood Urea Nitrogen 12 mg/dL (8-26) Creatinine 0.9 mg/dL (0.7-1.3) Estimated GFR (Cockcroft-Gault) 91.7 BUN/Creatinine Ratio 13 (6-20) Glucose Level 98 mg/dL (70-99) Calcium Level 9.4 mg/dL (8.5-10.1) Total Bilirubin 0.5 mg/dL (0.2-1.0) Aspartate Amino Transf (AST/SGOT) 21 U/L (15-37) Alanine Aminotransferase (ALT/SGPT) 36 U/L (16-63) Alkaline Phosphatase 62 U/L (46-116) Total Protein 6.4 g/dL (6.4-8.2) Albumin 3.0 g/dL (3.4-5.0) Albumin/Globulin Ratio 0.9 (1.0-1.7) Medications Current Medications Sodium Chloride 1,000 ml @ 1,000 mls/hr Q1H IV Last administered on 06/26/19at 10:36; Start 06/26/19 at 10:09; Stop 06/26/19 at 11:08; Status DC Ondansetron HCl (Zofran) 4 mg 1X ONCE IV Last administered on 06/26/19at 10:36; Start 06/26/19 at 10:15; Stop 06/26/19 at 10:37; Status DC Fentanyl Citrate (Fentanyl 2ml Vial) 50 mcg 1X ONCE IV Last administered on 06/26/19at 10:37; Start 06/26/19 at 10:15; Stop 06/26/19 at 10:36; Status DC Ketorolac Tromethamine (Toradol 30mg Vial) 30 mg 1X ONCE IV ; Start 06/26/19 at 11:30; Stop 06/26/19 at 11:31; Status DC Fentanyl Citrate (Fentanyl 2ml Vial) 50 mcg 1X ONCE IV Last administered on 06/26/19at 12:29; Start 06/26/19 at 11:45; Stop 06/26/19 at 11:50; Status DC Metoclopramide HCl (Reglan Vial) 10 mg 1X ONCE IV Last administered on 06/26/19at 12:29; Start 06/26/19 at 12:15; Stop 06/26/19 at 12:16; Status DC Ondansetron HCl (Zofran) 4 mg PRN Q8HRS PRN IV NAUSEA/VOMITING; Start 06/26/19 at 12:45; Stop 06/26/19 at 14:15; Status DC Sodium Chloride 1,000 ml @ 150 mls/hr [id number] IV Last administered on 06/26/19 12:52; Start 06/26/19 at 12:37; Stop 06/27/19 at 12:36 Amino Acids/ Glycerin/ Electrolytes 1,000 ml @ 75 mls/hr [id number] IV Last administered on 06/27/19at 04:26; Start 06/26/19 at 15:00 Ondansetron HCl (Zofran) 4 mg PRN Q6HRS PRN IV NAUSEA/VOMITING; Start 06/26/19 at 14:15 Acetaminophen/ Hydrocodone Bitart (Lortab 5/325) 1 tab PRN Q4HRS PRN PO PAIN Last administered on 06/27/19 07:17; Start 06/26/19 at 14:15 Pantoprazole Sodium (PROTONIX VIAL for IV PUSH) 40 mg DAILYAC IVP Last administered on 06/27/19 10:09; Start 06/26/19 at 15:30; Stop 06/27/19 at 10:59; Status DC Clonazepam (KlonoPIN) 2 mg QID PO Last administered on 06/27/19 10:09; Start 06/26/19 at 17:00 Lamotrigine (LaMICtal) 150 mg DAILY PO Last administered on 06/27/19 10:09; Start 06/27/19 at 09:00 Quetiapine Fumarate (SEROquel) 600 mg QHS PO Last administered on 06/26/19at 20:48; Start 06/26/19 at 21:00 Barium Sulfate (Liquid E-Z Paque) 710 ml 1X ONCE PO Last administered on 06/27/19 09:22; Start 06/27/19 at 07:15; Stop 06/27/19 at 07:16; Status DC Pantoprazole Sodium (Protonix) 40 mg DAILYAC PO ; Start 06/28/19 at 07:30 Active Scripts Active Reported Klonopin (Clonazepam) 2 Mg Tablet 2 Mg PO QID Seroquel (Quetiapine Fumarate) 300 Mg Tablet 2 Tab PO QHS Lamictal (Lamotrigine) 150 Mg Tablet 1 Tab PO DAILY Vitals/I & O Vital Sign - Last 24 Hours 06/26/19 06/26/19 06/26/19 06/26/19 12:37 12:50 15:00 16:01 Temp 98.3 98.2 98.3 98.2 Pulse 75 76 85 Resp 16 14 14 18 B/P (MAP) 131/82 (98) 121/87 (98) 125/88 (100) Pulse Ox 98 98 98 O2 Delivery Room Air Room Air Room Air Room Air 06/26/19 06/26/19 06/26/19 06/26/19 19:00 19:30 20:53 23:00 Temp 98.5 97.4 98.5 97.4 Pulse 59 77 Resp 18 18 B/P (MAP) 116/81 (93) 101/67 (78) Pulse Ox 98 96 O2 Delivery Room Air Room Air Room Air Room Air 06/27/19 06/27/19 06/27/19 06/27/19 01:54 03:00 03:11 04:31 Temp 97.8 97.8 Pulse 76 Resp 18 16 B/P (MAP) 100/68 (79) Pulse Ox 96 96 O2 Delivery Room Air Room Air Room Air Room Air 06/27/19 06/27/19 06/27/19 07:05 07:17 10:09 Temp 98.1 98.1 Pulse 77 Resp 18 18 B/P (MAP) 110/77 (88) Pulse Ox 97 O2 Delivery Room Air Room Air Room Air Intake and Output 06/26/19 06/26/19 06/27/19 15:00 23:00 07:00 Intake Total 1000 ml Balance 1000 ml JOHN NAVAS MD Jun 27, 2019 11:21
[2019-06-27 15:00] VITALS: BP 110/78
[2019-06-27 19:00] VITALS: BP 97/69
[2019-06-27] MEDS: QUEtiapine 100 MG TABLET. PO SCH (21:25)
[2019-06-27 23:00] VITALS: BP 101/73
[2019-06-28 03:00] VITALS: BP 115/70
[2019-06-28 05:59] LABS: BASO # 0.1 x10^3/uL (0.0-0.2); BASO % 1 % (0-3); EOS # 0.2 x10^3/uL (0.0-0.7); EOS % 3 % (0-3); HEMATOCRIT 39.9 % (39.0-53.0); HEMOGLOBIN 13.8 g/dL (13.0-17.5); LYMPH # 1.8 x10^3/uL (1.0-4.8); LYMPH % 37 % (24-48); MEAN CORPUSCULAR HEMOGLOBIN 32 pg (25-35); MEAN CORPUSCULAR HGB CONC 35 g/dL (31-37); MEAN CORPUSCULAR VOLUME 94 fL (79-100); MONO # 0.3 x10^3/uL (0.0-1.1); MONO % 7 % (0-9); NEUT # 2.5 x10^3/uL (1.8-7.7); NEUT % 51 % (31-73); PLATELET COUNT 240 x10^3/uL (140-400); RED BLOOD COUNT 4.26 x10^6/uL (4.30-5.70); RED CELL DISTRIBUTION WIDTH 12.7 % (11.5-14.5); WHITE BLOOD COUNT 4.8 x10^3/uL (4.0-11.0)
[2019-06-28 06:13] LABS: ALBUMIN 3.2 g/dL (3.4-5.0); CALCIUM 9.7 mg/dL (8.5-10.1); GFR 81.2; POTASSIUM 3.9 mmol/L (3.5-5.1); TOTAL BILIRUBIN 0.5 mg/dL (0.2-1.0); TOTAL PROTEIN 6.5 g/dL (6.4-8.2)
[2019-06-28] MEDS: AMINO AC 3%/ELECTROLYTE/GLYCER 1,000 ML IV SCH (06:35)
[2019-06-28 07:00] VITALS: BP 104/65
[2019-06-28] MEDS ORDERED: PANTOPRAZOLE 40 MG TABLET.DR. PO SCH (07:30)
[2019-06-28] MEDS: lamoTRIgine 100 MG TABLET. PO SCH (07:58)
[2019-06-28] MEDS: clonazePAM 1 MG TABLET PO SCH ×3 (07:58→17:38)
[2019-06-28] MEDS: HYDROcodone/APAP 5/325MG 1 TAB TABLET PO PRN ×3 (08:03→17:38)
--- NOTE | 2019-06-28 10:57 | PDOC ---
PROGRESS NOTES History of Present Illness History of Present Illness discharge dx Nausea, vomiting, INTRACTABLE , resolved, eating ok today abdominal pain, mild hypercalcemia. no Meckel's today because of SBS yesterday admitted. IV fluids, PTH level, p.r.n. Zofran, deep vein thrombosis prophylaxis, home medications. Meckel's scan 06/27 cancelled PPN AM LABS 25 MIN PT EXAM d/c planning time, CHART REVIEW, > 50% OF TIME SPENT WITH EXAM, CHART REVIEW, PT CARE COORDINATION Vitals Vitals Vital Signs Date Time Temp Pulse Resp B/P (MAP) Pulse Ox O2 Delivery O2 Flow Rate FiO2 06/28/19 08:03 18 Room Air 06/28/19 07:00 97.4 79 104/65 (78) 94 97.4 Physical Exam Physical Exam reactive to light and accommodation. NECK: Supple, no JVD, no thyromegaly was noted. LUNGS: Clear to auscultation in all lung sweet without rhonchi or wheezing. HEART: RRR, S1, S2 present. Peripheral pulses intact, no obvious murmurs were noted. ABDOMEN: Soft, nontender. Positive bowel sounds no organomegaly, normal bowel sounds. EXTREMITIES: Without any cyanosis, clubbing, or edema. Pedal pulses intact, Homans sign is negative. NEUROLOGIC: Normal speech, normal tone. A & O x3, moves all extremities, no obvious focal deficits. PSYCHIATRIC: Normal affect, normal mood. Stable. SKIN: No ulcerations or rashes, good skin turgor, no jaundice. VASCULAR: Good capillary refill, neurovascular bundle appears to be intact. General: Alert, Oriented X3, Cooperative, No acute distress Heart: Regular rate Lungs: Clear Abdomen: Normal bowel sounds, Soft, No tenderness, No masses Extremities: No cyanosis Labs LABS Laboratory Tests Test 06/28/19 05:40 White Blood Count 4.8 x10^3/uL (4.0-11.0) Red Blood Count 4.26 x10^6/uL (4.30-5.70) Hemoglobin 13.8 g/dL (13.0-17.5) Hematocrit 39.9 % (39.0-53.0) Mean Corpuscular Volume 94 fL (79-100) Mean Corpuscular Hemoglobin 32 pg (25-35) Mean Corpuscular Hemoglobin Concent 35 g/dL (31-37) Red Cell Distribution Width 12.7 % (11.5-14.5) Platelet Count 240 x10^3/uL (140-400) Neutrophils (%) (Auto) 51 % (31-73) Lymphocytes (%) (Auto) 37 % (24-48) Monocytes (%) (Auto) 7 % (0-9) Eosinophils (%) (Auto) 3 % (0-3) Basophils (%) (Auto) 1 % (0-3) Neutrophils # (Auto) 2.5 x10^3/uL (1.8-7.7) Lymphocytes # (Auto) 1.8 x10^3/uL (1.0-4.8) Monocytes # (Auto) 0.3 x10^3/uL (0.0-1.1) Eosinophils # (Auto) 0.2 x10^3/uL (0.0-0.7) Basophils # (Auto) 0.1 x10^3/uL (0.0-0.2) Sodium Level 139 mmol/L (136-145) Potassium Level 3.9 mmol/L (3.5-5.1) Chloride Level 106 mmol/L (98-107) Carbon Dioxide Level 26 mmol/L (21-32) Anion Gap 7 (6-14) Blood Urea Nitrogen 16 mg/dL (8-26) Creatinine 1.0 mg/dL (0.7-1.3) Estimated GFR (Cockcroft-Gault) 81.2 BUN/Creatinine Ratio 16 (6-20) Glucose Level 96 mg/dL (70-99) Calcium Level 9.7 mg/dL (8.5-10.1) Total Bilirubin 0.5 mg/dL (0.2-1.0) Aspartate Amino Transf (AST/SGOT) 13 U/L (15-37) Alanine Aminotransferase (ALT/SGPT) 32 U/L (16-63) Alkaline Phosphatase 64 U/L (46-116) Total Protein 6.5 g/dL (6.4-8.2) Albumin 3.2 g/dL (3.4-5.0) Albumin/Globulin Ratio 1.0 (1.0-1.7) Assessment and Plan Assessmemt and Plan Problems Medical Problems: (1) Abdominal pain Status: Acute (2) Hypercalcemia Status: Acute (3) Nausea and vomiting Status: Acute Comment Review of Relevant I have reviewed the following items rio (where applicable) has been applied. Labs Laboratory Tests Test 06/26/19 11:05 06/26/19 14:40 06/26/19 16:55 06/27/19 03:30 Urine Collection Type Void Urine Color Yellow Urine Clarity Clear Urine pH 7.5 Urine Specific [place] 1.015 Urine Protein Negative mg/dL (NEG-TRACE) Urine Glucose (UA) Negative mg/dL (NEG) Urine Ketones (Stick) Negative mg/dL (NEG) Urine Blood Negative (NEG) Urine Nitrite Negative (NEG) Urine Bilirubin Negative (NEG) Urine Urobilinogen Dipstick 0.2 mg/dL (0.2 mg/dL) Urine Leukocyte Esterase Negative (NEG) Urine RBC Occ /HPF (0-2) Urine WBC 1-4 /HPF (0-4) Urine Squamous Epithelial Cells Few /LPF Urine Bacteria 0 /HPF (0-FEW) Estimated GFR (Non- 104 (>59) EGFR 121 (>59) PTH (Intact) Specimen Description Comment (.) Parathyroid Hormone (Intact) 23 pg/mL (15-65) Calcium (PTH Intact) 10.1 mg/dL (8.7-10.2) Creatinine (PTH Intact) 0.88 mg/dL (0.76-1.27) Phosphorus (PTH Intact) 2.2 mg/dL (2.5-4.5) Urine Opiates Screen Neg (NEG) Urine Methadone Screen Neg (NEG) Urine Barbiturates Neg (NEG) Urine Phencyclidine Screen Neg (NEG) Urine Amphetamine/Methamphetamine Neg (NEG) Urine Benzodiazepines Screen Neg (NEG) Urine Cocaine Screen Neg (NEG) Urine Cannabinoids Screen Neg (NEG) Urine Ethyl Alcohol Neg (NEG) White Blood Count 5.0 x10^3/uL (4.0-11.0) Red Blood Count 4.10 x10^6/uL (4.30-5.70) Hemoglobin 13.2 g/dL (13.0-17.5) Hematocrit 38.2 % (39.0-53.0) Mean Corpuscular Volume 93 fL (79-100) Mean Corpuscular Hemoglobin 32 pg (25-35) Mean Corpuscular Hemoglobin Concent 35 g/dL (31-37) Red Cell Distribution Width 12.6 % (11.5-14.5) Platelet Count 251 x10^3/uL (140-400) Sodium Level 140 mmol/L (136-145) Potassium Level 3.6 mmol/L (3.5-5.1) Chloride Level 105 mmol/L (98-107) Carbon Dioxide Level 27 mmol/L (21-32) Anion Gap 8 (6-14) Blood Urea Nitrogen 12 mg/dL (8-26) Creatinine 0.9 mg/dL (0.7-1.3) Estimated GFR (Cockcroft-Gault) 91.7 BUN/Creatinine Ratio 13 (6-20) Glucose Level 98 mg/dL (70-99) Calcium Level 9.4 mg/dL (8.5-10.1) Total Bilirubin 0.5 mg/dL (0.2-1.0) Aspartate Amino Transf (AST/SGOT) 21 U/L (15-37) Alanine Aminotransferase (ALT/SGPT) 36 U/L (16-63) Alkaline Phosphatase 62 U/L (46-116) Total Protein 6.4 g/dL (6.4-8.2) Albumin 3.0 g/dL (3.4-5.0) Albumin/Globulin Ratio 0.9 (1.0-1.7) Test 06/28/19 05:40 White Blood Count 4.8 x10^3/uL (4.0-11.0) Red Blood Count 4.26 x10^6/uL (4.30-5.70) Hemoglobin 13.8 g/dL (13.0-17.5) Hematocrit 39.9 % (39.0-53.0) Mean Corpuscular Volume 94 fL (79-100) Mean Corpuscular Hemoglobin 32 pg (25-35) Mean Corpuscular Hemoglobin Concent 35 g/dL (31-37) Red Cell Distribution Width 12.7 % (11.5-14.5) Platelet Count 240 x10^3/uL (140-400) Neutrophils (%) (Auto) 51 % (31-73) Lymphocytes (%) (Auto) 37 % (24-48) Monocytes (%) (Auto) 7 % (0-9) Eosinophils (%) (Auto) 3 % (0-3) Basophils (%) (Auto) 1 % (0-3) Neutrophils # (Auto) 2.5 x10^3/uL (1.8-7.7) Lymphocytes # (Auto) 1.8 x10^3/uL (1.0-4.8) Monocytes # (Auto) 0.3 x10^3/uL (0.0-1.1) Eosinophils # (Auto) 0.2 x10^3/uL (0.0-0.7) Basophils # (Auto) 0.1 x10^3/uL (0.0-0.2) Sodium Level 139 mmol/L (136-145) Potassium Level 3.9 mmol/L (3.5-5.1) Chloride Level 106 mmol/L (98-107) Carbon Dioxide Level 26 mmol/L (21-32) Anion Gap 7 (6-14) Blood Urea Nitrogen 16 mg/dL (8-26) Creatinine 1.0 mg/dL (0.7-1.3) Estimated GFR (Cockcroft-Gault) 81.2 BUN/Creatinine Ratio 16 (6-20) Glucose Level 96 mg/dL (70-99) Calcium Level 9.7 mg/dL (8.5-10.1) Total Bilirubin 0.5 mg/dL (0.2-1.0) Aspartate Amino Transf (AST/SGOT) 13 U/L (15-37) Alanine Aminotransferase (ALT/SGPT) 32 U/L (16-63) Alkaline Phosphatase 64 U/L (46-116) Total Protein 6.5 g/dL (6.4-8.2) Albumin 3.2 g/dL (3.4-5.0) Albumin/Globulin Ratio 1.0 (1.0-1.7) Laboratory Tests Test 06/28/19 05:40 White Blood Count 4.8 x10^3/uL (4.0-11.0) Red Blood Count 4.26 x10^6/uL (4.30-5.70) Hemoglobin 13.8 g/dL (13.0-17.5) Hematocrit 39.9 % (39.0-53.0) Mean Corpuscular Volume 94 fL (79-100) Mean Corpuscular Hemoglobin 32 pg (25-35) Mean Corpuscular Hemoglobin Concent 35 g/dL (31-37) Red Cell Distribution Width 12.7 % (11.5-14.5) Platelet Count 240 x10^3/uL (140-400) Neutrophils (%) (Auto) 51 % (31-73) Lymphocytes (%) (Auto) 37 % (24-48) Monocytes (%) (Auto) 7 % (0-9) Eosinophils (%) (Auto) 3 % (0-3) Basophils (%) (Auto) 1 % (0-3) Neutrophils # (Auto) 2.5 x10^3/uL (1.8-7.7) Lymphocytes # (Auto) 1.8 x10^3/uL (1.0-4.8) Monocytes # (Auto) 0.3 x10^3/uL (0.0-1.1) Eosinophils # (Auto) 0.2 x10^3/uL (0.0-0.7) Basophils # (Auto) 0.1 x10^3/uL (0.0-0.2) Sodium Level 139 mmol/L (136-145) Potassium Level 3.9 mmol/L (3.5-5.1) Chloride Level 106 mmol/L (98-107) Carbon Dioxide Level 26 mmol/L (21-32) Anion Gap 7 (6-14) Blood Urea Nitrogen 16 mg/dL (8-26) Creatinine 1.0 mg/dL (0.7-1.3) Estimated GFR (Cockcroft-Gault) 81.2 BUN/Creatinine Ratio 16 (6-20) Glucose Level 96 mg/dL (70-99) Calcium Level 9.7 mg/dL (8.5-10.1) Total Bilirubin 0.5 mg/dL (0.2-1.0) Aspartate Amino Transf (AST/SGOT) 13 U/L (15-37) Alanine Aminotransferase (ALT/SGPT) 32 U/L (16-63) Alkaline Phosphatase 64 U/L (46-116) Total Protein 6.5 g/dL (6.4-8.2) Albumin 3.2 g/dL (3.4-5.0) Albumin/Globulin Ratio 1.0 (1.0-1.7) Medications Current Medications Sodium Chloride 1,000 ml @ 1,000 mls/hr Q1H IV Last administered on 06/26/19at 10:36; Start 06/26/19 at 10:09; Stop 06/26/19 at 11:08; Status DC Ondansetron HCl (Zofran) 4 mg 1X ONCE IV Last administered on 06/26/19at 10:36; Start 06/26/19 at 10:15; Stop 06/26/19 at 10:37; Status DC Fentanyl Citrate (Fentanyl 2ml Vial) 50 mcg 1X ONCE IV Last administered on 06/26/19at 10:37; Start 06/26/19 at 10:15; Stop 06/26/19 at 10:36; Status DC Ketorolac Tromethamine (Toradol 30mg Vial) 30 mg 1X ONCE IV ; Start 06/26/19 at 11:30; Stop 06/26/19 at 11:31; Status DC Fentanyl Citrate (Fentanyl 2ml Vial) 50 mcg 1X ONCE IV Last administered on 06/26/19 12:29; Start 06/26/19 at 11:45; Stop 06/26/19 at 11:50; Status DC Metoclopramide HCl (Reglan Vial) 10 mg 1X ONCE IV Last administered on 06/26/19at 12:29; Start 06/26/19 at 12:15; Stop 06/26/19 at 12:16; Status DC Ondansetron HCl (Zofran) 4 mg PRN Q8HRS PRN IV NAUSEA/VOMITING; Start 06/26/19 at 12:45; Stop 06/26/19 at 14:15; Status DC Sodium Chloride 1,000 ml @ 150 mls/hr [id number] IV Last administered on 06/26/19at 12:52; Start 06/26/19 at 12:37; Stop 06/27/19 at 12:36; Status DC Amino Acids/ Glycerin/ Electrolytes 1,000 ml @ 75 mls/hr [id number] IV Last administered on 06/28/19 06:35; Start 06/26/19 at 15:00 Ondansetron HCl (Zofran) 4 mg PRN Q6HRS PRN IV NAUSEA/VOMITING; Start 06/26/19 at 14:15 Acetaminophen/ Hydrocodone Bitart (Lortab 5/325) 1 tab PRN Q4HRS PRN PO PAIN Last administered on 06/28/19 08:03; Start 06/26/19 at 14:15 Pantoprazole Sodium (PROTONIX VIAL for IV PUSH) 40 mg DAILYAC IVP Last administered on 06/27/19 10:09; Start 06/26/19 at 15:30; Stop 06/27/19 at 10:59; Status DC Clonazepam (KlonoPIN) 2 mg QID PO Last administered on 06/28/19 08:03; Start 06/26/19 at 17:00 Lamotrigine (LaMICtal) 150 mg DAILY PO Last administered on 06/28/19at 08:03; Start 06/27/19 at 09:00 Quetiapine Fumarate (SEROquel) 600 mg QHS PO Last administered on 06/27/19 21:25; Start 06/26/19 at 21:00 Barium Sulfate (Liquid E-Z Paque) 710 ml 1X ONCE PO Last administered on 06/27/19 09:22; Start 06/27/19 at 07:15; Stop 06/27/19 at 07:16; Status DC Pantoprazole Sodium (Protonix) 40 mg DAILYAC PO Last administered on 06/28/19 08:03; Start 06/28/19 at 07:30 Active Scripts Active Reported Klonopin (Clonazepam) 2 Mg Tablet 2 Mg PO QID Seroquel (Quetiapine Fumarate) 300 Mg Tablet 2 Tab PO QHS Lamictal (Lamotrigine) 150 Mg Tablet 1 Tab PO DAILY Vitals/I & O Vital Sign - Last 24 Hours 06/27/19 06/27/19 06/27/19 06/27/19 11:00 13:24 15:00 17:22 Temp 97.6 97.5 97.6 97.5 Pulse 76 71 Resp 18 20 18 18 B/P (MAP) 101/75 (84) 110/78 (89) Pulse Ox 95 95 96 96 O2 Delivery Room Air Room Air Room Air Room Air 06/27/19 06/27/19 06/27/19 06/27/19 17:23 19:00 19:52 20:00 Temp 98.1 98.1 Pulse 73 Resp 18 18 20 B/P (MAP) 97/69 (78) Pulse Ox 96 97 96 O2 Delivery Room Air Room Air Room Air Room Air 06/27/19 06/27/19 06/27/19/22/19 21:25 23:00 23:23 03:00 Temp 98.0 98.5 98.0 98.5 Pulse 70 67 Resp 18 18 B/P (MAP) 101/73 (82) 115/70 (85) Pulse Ox 96 96 96 95 O2 Delivery Room Air Room Air Room Air Room Air 06/28/19 06/28/19 06/28/19 07:00 08:00 08:03 Temp 97.4 97.4 Pulse 79 Resp 16 18 B/P (MAP) 104/65 (78) Pulse Ox 94 O2 Delivery Room Air Room Air Room Air Intake and Output 06/27/19 06/27/19 06/28/19 14:59 22:59 06:59 Intake Total 350 ml 0 ml Balance 350 ml 0 ml JOHN NAVAS MD Jun 28, 2019 10:57
[2019-06-28 11:00] VITALS: BP 97/66
--- NOTE | 2019-06-28 12:55 | PDOC ---
Subjective: Subjective: Tolerating PO - had biscuits and gravy. No nausea. Less pain. Stooled yesterday. Ready to go home. Objective: Objective: Talked w/ nurse this morning - no Meckel's today because of SBS yesterday. Pt asked if he could discharge and follow-up as outpt. Vital Signs: Vital Signs Date Time Temp Pulse Resp B/P (MAP) Pulse Ox O2 Delivery O2 Flow Rate FiO2 06/28/19 12:13 18 Room Air 06/28/19 11:36 94 06/28/19 11:00 97.9 85 97/66 (76) 97.9 Labs: Laboratory Tests Test 06/28/19 05:40 White Blood Count 4.8 x10^3/uL Red Blood Count 4.26 x10^6/uL Hemoglobin 13.8 g/dL Hematocrit 39.9 % Mean Corpuscular Volume 94 fL Mean Corpuscular Hemoglobin 32 pg Mean Corpuscular Hemoglobin Concent 35 g/dL Red Cell Distribution Width 12.7 % Platelet Count 240 x10^3/uL Neutrophils (%) (Auto) 51 % Lymphocytes (%) (Auto) 37 % Monocytes (%) (Auto) 7 % Eosinophils (%) (Auto) 3 % Basophils (%) (Auto) 1 % Neutrophils # (Auto) 2.5 x10^3/uL Lymphocytes # (Auto) 1.8 x10^3/uL Monocytes # (Auto) 0.3 x10^3/uL Eosinophils # (Auto) 0.2 x10^3/uL Basophils # (Auto) 0.1 x10^3/uL Sodium Level 139 mmol/L Potassium Level 3.9 mmol/L Chloride Level 106 mmol/L Carbon Dioxide Level 26 mmol/L Anion Gap 7 Blood Urea Nitrogen 16 mg/dL Creatinine 1.0 mg/dL Estimated GFR (Cockcroft-Gault) 81.2 BUN/Creatinine Ratio 16 Glucose Level 96 mg/dL Calcium Level 9.7 mg/dL Total Bilirubin 0.5 mg/dL Aspartate Amino Transf (AST/SGOT) 13 U/L Alanine Aminotransferase (ALT/SGPT) 32 U/L Alkaline Phosphatase 64 U/L Total Protein 6.5 g/dL Albumin 3.2 g/dL Albumin/Globulin Ratio 1.0 PE: GEN: NAD, drowsy LUNGS: CTAB HEART: RRR ABD: NABS, soft, less tender RUQ and RLQ NEURO/PSYCH: A & O �3 A/P: Right-sided abd pain, n/v - resolving -- DC per primary. Follow-up w/ Dr. Pereyra as outpt if symptoms recur. OLGA URIOSTEGUI Jun 28, 2019 12:55
[2019-06-28 15:00] VITALS: BP 121/76
[2019-06-28] MEDS ORDERED: PANT40TA77 PO (18:47)
--- NOTE | 2019-06-28 18:49 | DISCH ---
DISCHARGE INSTRUCTIONS Condition on Discharge Condition on Discharge: Stable Activity After Discharge Activity Instructions for Disc: Activity as tolerated Lifting Instructions after Dis: No heavy lifting, No pulling or pushing Exercise Instruction after Dis: Walk 10 min, 3 x per day Driving Instructions after Dis: Do not drive today Diet after Discharge Diet after Discharge: Low Fat, GI Soft Liquid Texture: Thin Liquid Checks after Discharge Checks after discharge: Check blood press - daily Contacting the DR. after DC Call your doctor for: If your condition worsens JOHN NAVAS MD Jun 28, 2019 18:49
[2019-06-28 19:00] VITALS: BP 114/71
== END 2019-06-28 20:55 | disposition home or self-care (01) | DRG 641 ==
LOC: ER 09:51 → 5 NORTH 12:03
PROVIDERS: ADMIT Internal Medicine; ATTEND Internal Medicine
DX: E83.52 Hypercalcemia (principal); K58.9 Irritable bowel syndrome, unspecified; F31.9 Bipolar disorder, unspecified; Z80.3 Family history of malignant neoplasm of breast; Z80.1 Family history of malignant neoplasm of trachea, bronchus and lung; Z82.49 Family history of ischemic heart disease and other diseases of the circulatory system; Z90.49 Acquired absence of other specified parts of digestive tract; Z88.7 Allergy status to serum and vaccine; Z88.8 Allergy status to other drugs, medicaments and biological substances
CPT/HCPCS: 36415; 74176; 74250; 80053; 80307; 81001; 83690; 83970; 85025; 85027; 96374; 96375; C9113; J2405; J2765; J3010; J7030; 99285-25; G0378